=== PATIENT | male | born 1970 | race Caucasian/White ===

== ENCOUNTER 2024-01-11 15:00 | Outpatient (RCR) | payer BC, SELFPAY | END 2024-01-24 15:27 | disposition home or self-care (01) | LOC: PT 15:00 | PROVIDERS: Visit Provider Physical Medicine & Rehabilitation | DX: M25.552 Pain in left hip (principal); M54.50 Low back pain, unspecified | CPT/HCPCS: 97012; 97014; 97110; 97140; 97163; G0283 ==